=== PATIENT | female | born 1990 | race Caucasian/White ===

== ENCOUNTER 2016-12-22 05:35 | Inpatient (IN) | payer BC ==
[2016-12-22] MEDS ORDERED: Sodium Chloride 0.9% 10 ML Syringe FLUSH PRN (06:14)
[2016-12-22] MEDS ORDERED: Ondansetron 4 MG/2 ML SDV IVPUSH PRN (06:14)
[2016-12-22] MEDS ORDERED: Nalbuphine 20 MG/1 ML Amp IVPUSH PRN (06:14)
[2016-12-22] MEDS ORDERED: Oxytocin/Lactated Ringers 10 UNIT/1,000 ML BAG IV SCH (06:15)
[2016-12-22] MEDS ORDERED: Lactated Ringers 1,000 ML IV SCH (06:15)
[2016-12-22] MEDS ORDERED: Lidocaine 1% 50 ML MDV ONE (11:16)
[2016-12-22] MEDS ORDERED: Lanolin 100% Cream 7 GM Tube TOP PRN (16:16)
[2016-12-22] MEDS ORDERED: Docusate Sodium 100 MG Cap PO PRN (16:16)
[2016-12-22] MEDS ORDERED: Benzocaine/Menthol 20%-0.5% Spray 56 GM Canister TOP PRN (16:16)
[2016-12-22] MEDS ORDERED: Ibuprofen 600 MG Tab PO PRN (16:16)
[2016-12-22] MEDS ORDERED: Witch Hazel Medicated Pads 100/Jar TOP PRN (16:16)
--- NOTE | 2016-12-23 09:44 | PCM.LDHP ---
L&D History of Present Illness - General Date of Service: 12/22/16 Admit Problem/Dx: Admission Diagnosis/Problem Admission Diagnosis/Problem Source of Information: Patient History Limitations: Reports: No Limitations - History of Present Illness Introduction:: 26 year old female at 39w3 days. Increasingly regular contractions that started yesterday. On presentation is 4 cm and shortly after has SROM with clear fluid. 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 , Other (See Below) Other OB/BYN History: SAB x3 - Past Surgical History HEENT Surgical History: Reports: Oral Surgery, Other (See Below) Other HEENT Surgeries/Procedures: [place] teeth extraction Social & Family History - Tobacco Use Smoking Status *Q: Former Smoker Used Tobacco, but Quit: Yes Month Tobacco Last Used: 7 yrs ago - Caffeine Use Caffeine Use: Reports: Coffee - Recreational Drug Use Recreational Drug Use: No H&P Review of Systems - Review of Systems: Review Of Systems: See Below General: Reports: No Symptoms HEENT: Reports: No Symptoms Pulmonary: Reports: No Symptoms Cardiovascular: Reports: No Symptoms Gastrointestinal: Reports: No Symptoms Genitourinary: Reports: No Symptoms Musculoskeletal: Reports: No Symptoms Skin: Reports: No Symptoms Psychiatric: Reports: No Symptoms Neurological: Reports: No Symptoms Hematologic/Lymphatic: Reports: No Symptoms Immunologic: Reports: No Symptoms L&D Exam - Exam Exam: See Below - Vital Signs Vital Signs: Last Vital Signs Temp 36.6 C 12/22/16 22:27 Pulse 71 12/23/16 04:01 Resp 16 12/23/16 04:01 BP 108/86 12/23/16 04:01 Pulse Ox 96 12/23/16 04:01 Weight: 74.389 kg - OB Specific Contraction Intensity: Moderate Movement: Active Heart Tones per Min: 140 Heart Rate (FHR) Variability: Moderate (6-25 bmp) Presentation: Vertex - Lim Score Lim Score Cervix Position: Midposition Lim Score Consistency: Soft Lim Score Effacement: 51-70% Lim Score Dilation: 3-4 cm Lim Score 's Station: -2 Lim Score Total: 8 - Exam General: Alert, Oriented HEENT: PERRLA, Conjunctiva Clear, EACs Clear, EOMI, Hearing Intact, Mucosa Moist & [place], Nares Patent, Normal Nasal Septum, Posterior Pharynx Clear, TMs Clear Neck: Supple, Trachea Midline Lungs: Clear to Auscultation, Normal Respiratory Effort Cardiovascular: Regular Rate, Regular Rhythm GI/Abdominal Exam: Normal Bowel Sounds, Soft, Non-Tender, No Organomegaly, No Distention, No Abnormal Bruit, No Mass, Pelvis Stable Rectal Exam: Normal Exam, Normal Rectal Tone Genitourinary: Normal external exam, Normal bimanual exam, Normal speculum exam Back Exam: Normal Inspection, Full Range of Motion Extremities: Normal Inspection, Normal Range of Motion, Non-Tender, No Pedal Edema, Normal Capillary Refill Skin: Warm, Dry, Intact Neurological: Cranial Nerves Intact, Reflexes Equal Bilateral Psychiatric: Alert, Normal Affect, Normal Mood - Patient Data Result Diagrams: 12/22/16 07:00 Problem List Initiated/Reviewed/Updated: Yes Orders Last 24hrs: Active Orders 24 hr Category Date Time Status Activity as Tolerated [RC] .PRN Care 12/22/16 16:16 Active Vital Signs [RC] 04,12,20 Care 12/22/16 16:16 Active Benzocaine/Menthol [Dermoplast Pain Relief [place]] Med 12/22/16 16:16 Active See Dose Instructions TOP ASDIRECTED PRN Docusate Sodium [Colace] Med 12/22/16 16:16 Active 100 mg PO BID PRN Ibuprofen [Motrin] Med 12/22/16 16:16 Active 600 mg PO Q6H PRN Lanolin [Lansinoh HPA] Med 12/22/16 16:16 Active See Dose Instructions TOP ASDIRECTED PRN Witch Zully [Tucks] Med 12/22/16 16:16 Active 1 pad TOP ASDIRECTED PRN Assess Lochia [WOMSER] Per Unit Routine Ot 12/22/16 16:16 Ordered Assess Uterine Involution [WOMSER] Per Unit Routine Oth 12/22/16 16:16 Ordered Breast Pump [WOMSER] Per Unit Routine Oth 12/22/16 16:16 Ordered Heat Therapy [OM.PC] PRN Oth 12/22/16 16:16 Ordered Heat Therapy [OM.PC] PRN Oth 12/23/16 16:16 Ordered Medication Administration Instruction [OM.PC] Routine Ot 12/22/16 16:16 Ordered Perineal Care [OM.PC] Per Unit Routine Ot 12/22/16 16:16 Ordered Sitz Bath [OM.PC] Per Unit Routine Ot 12/22/16 16:16 Ordered Medication Orders Benzocaine/Menthol (Dermoplast Pain Relief [place]) 0 gm TOP ASDIRECTED PRN PRN Reason: Perineal Comfort Measure Docusate Sodium (Colace) 100 mg PO BID PRN PRN Reason: Constipation Emollient Ointment (Lansinoh Hpa) 0 gm TOP ASDIRECTED PRN PRN Reason: Sore Nipples Ibuprofen (Motrin) 600 mg PO Q6H PRN PRN Reason: Mild pain or fever Witch Zully (Tucks) 1 pad TOP ASDIRECTED PRN PRN Reason: Hemorrhoid pain Assessment/Plan Comment:: 26 year old female in labor. Extensive plan reviewed. Patient will eventually agree to saline lock. Anticipate .
--- NOTE | 2016-12-23 09:52 | PCM.DCSUM1 ---
Discharge Summary - Hospital Course Brief History: Admitted in labor and had uncomplicated course. - Discharge Data Discharge Date: 12/23/16 Discharge Disposition: Home, Self-Care 01 Condition: Good - Patient Instructions Diet: Usual Diet as Tolerated Activity: No Strenuous Activities Driving: May Drive Today Showering/Bathing: May Shower Wound/Incision Care: Keep Operative Site/Wound Site Clean and Dry Notify Provider of: Fever, Increased Pain, Swelling and Redness, Drainage, Nausea and/or Vomiting - Discharge Plan Referrals: Yesy Stephenson MD [Primary Care Provider] - (6 weeks) - Discharge Summary/Plan Comment DC Time >30 min.: No - General Info Date of Service: 12/23/16 Functional Status: Reports: Pain Controlled - Review of Systems General: Reports: No Symptoms HEENT: Reports: No Symptoms Pulmonary: Reports: No Symptoms Cardiovascular: Reports: No Symptoms Gastrointestinal: Reports: No Symptoms Genitourinary: Reports: No Symptoms Musculoskeletal: Reports: No Symptoms Skin: Reports: No Symptoms Neurological: Reports: No Symptoms Psychiatric: Reports: No Symptoms - Patient Data Vitals - Most Recent: Last Vital Signs Temp 36.6 C 12/22/16 22:27 Pulse 71 12/23/16 04:01 Resp 16 12/23/16 04:01 BP 108/86 12/23/16 04:01 Pulse Ox 96 12/23/16 04:01 Weight - Most Recent: 74.389 kg Med Orders - Current: Current Medications Benzocaine/Menthol (Dermoplast Pain Relief [place]) 0 gm TOP ASDIRECTED PRN PRN Reason: Perineal Comfort Measure Docusate Sodium (Colace) 100 mg PO BID PRN PRN Reason: Constipation Emollient Ointment (Lansinoh Hpa) 0 gm TOP ASDIRECTED PRN PRN Reason: Sore Nipples Ibuprofen (Motrin) 600 mg PO Q6H PRN PRN Reason: Mild pain or fever Witch Zully (Tucks) 1 pad TOP ASDIRECTED PRN PRN Reason: Hemorrhoid pain Discontinued Medications Lactated Ringer's (Ringers, Lactated) 1,000 mls @ 100 mls/hr IV ASDIRECTED BRAYAN Oxytocin/Lactated Ringer's (Pitocin In Lr 10 Units/1,000 Ml) 10 unit in 1,000 mls @ 500 mls/hr IV .CONTINUOUS BRAYAN Lidocaine HCl (Xylocaine 1%) Confirm Administered Dose 50 ml .ROUTE .STK-MED ONE Stop: 12/22/16 11:17 Last Admin: 12/22/16 17:37 Dose: Not Given Nalbuphine HCl (Nubain) 10 mg IVPUSH Q2H PRN PRN Reason: Pain (moderate 4-6) Ondansetron HCl (Zofran) 4 mg IVPUSH Q4H PRN PRN Reason: Nausea/Vomiting Sodium Chloride (Saline Flush) 10 ml FLUSH ASDIRECTED PRN PRN Reason: Keep Vein Open - Exam General: Reports: Alert, Oriented HEENT: Reports: Pupils Equal, Pupils Reactive, EOMI, Mucous Membr. Moist/[place] Neck: Reports: Supple Lungs: Reports: Clear to Auscultation, Normal Respiratory Effort Cardiovascular: Reports: Regular Rate, Regular Rhythm GI/Abdominal Exam: Normal Bowel Sounds, Soft, Non-Tender, No Organomegaly, No Distention, No Abnormal Bruit, No Mass, Pelvis Stable (Female) Exam: Normal Bimanual Exam Back Exam: Reports: Normal Inspection, Full Range of Motion Extremities: Normal Inspection, Normal Range of Motion, Non-Tender, No Pedal Edema, Normal Capillary Refill Skin: Reports: Warm, Dry, Intact Wound/Incisions: Reports: Healing Well Neurological: Reports: No New Focal Deficit Psy/Mental Status: Reports: Alert, Normal Affect, Normal Mood *Q Meaningful Use (DIS) - VTE *Q VTE Criteria *Q: - Stroke *Q Stroke Criteria *Q: - AMI *Q AMI Criteria *Q:
[2016-12-23 16:40] VITALS: BP 113/49
== END 2016-12-23 15:00 | disposition home or self-care (01) | DRG 560 ==
LOC: JD.OBCHECK 05:35 → JD.OB 05:37 → JD.OBCHECK 06:14 → UNDOADMOB 06:14 → JD.OB 06:14 → OBSVTOIN 13:59 → JD.OB 13:59
PROVIDERS: ADMIT Obstetrics & Gynecology; ATTEND Obstetrics & Gynecology
PROC: 10E0XZZ Delivery of Products of Conception, External Approach (ICD-10-PCS; principal; 2016-12-22)
DX: O80 Encounter for full-term uncomplicated delivery (principal); Z3A.39 39 weeks gestation of pregnancy; Z37.0 Single live birth; Z87.891 Personal history of nicotine dependence; Z88.8 Allergy status to other drugs, medicaments and biological substances
CPT/HCPCS: 36415; 59409; 85025; A9270-GY

== ENCOUNTER 2019-05-04 09:42 | Inpatient (IN) | payer BC ==
[2019-05-04] MEDS ORDERED: Oxytocin 10 Units/1 ML SDV IM ONE (10:04)
[2019-05-04] MEDS ORDERED: Sodium Chloride 0.9% 10 ML Syringe FLUSH PRN (10:04)
[2019-05-04] MEDS ORDERED: Lactated Ringers 1,000 ML IV SCH (10:15)
--- NOTE | 2019-05-04 10:31 | PCM.LDHP ---
L&D History of Present Illness - General Date of Service: 05/04/19 Admit Problem/Dx: Patient Status Order with Admit Dx/Problem 05/04/19 10:04 Patient Status [ADT] Routine Admission Diagnosis/Problem Admission Diagnosis/Problem Active labor Source of Information: Patient History Limitations: Reports: No Limitations - History of Present Illness Introduction:: 28 year old at 41w5d presents in active labor at 8 cm. Intact membranes. Contractions started at 3am. PNC with myself without complications. Rh negative. rH neg. 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 , Other (See Below) Other OB/BYN History: SAB x3 - Past Surgical History HEENT Surgical History: Reports: Oral Surgery, Other (See Below) Other HEENT Surgeries/Procedures: [place] teeth extraction Social & Family History - Caffeine Use Caffeine Use: Reports: Coffee H&P Review of Systems - Review of Systems: Review Of Systems: See Below General: Reports: No Symptoms HEENT: Reports: No Symptoms Pulmonary: Reports: No Symptoms Cardiovascular: Reports: No Symptoms Gastrointestinal: Reports: No Symptoms Genitourinary: Reports: No Symptoms Musculoskeletal: Reports: No Symptoms Skin: Reports: No Symptoms Psychiatric: Reports: No Symptoms Neurological: Reports: No Symptoms Hematologic/Lymphatic: Reports: No Symptoms Immunologic: Reports: No Symptoms L&D Exam - Exam Exam: See Below - Vital Signs Weight: 75.115 kg - OB Specific Contraction Intensity: Moderate to Strong Movement: Active Heart Tones: Present Heart Rate (FHR) Variability: Moderate (6-25 bmp) Presentation: Vertex - Lim Score Lim Score Cervix Position: Anterior Lim Score Effacement: >80% Lim Score Dilation: > 5 cm - Exam General: Alert, Oriented HEENT: PERRLA, Conjunctiva Clear, EACs Clear, EOMI, Hearing Intact, Mucosa Moist & [place], Nares Patent, Normal Nasal Septum, Posterior Pharynx Clear, TMs Clear Neck: Supple, Trachea Midline Lungs: Clear to Auscultation, Normal Respiratory Effort Cardiovascular: Regular Rate, Regular Rhythm GI/Abdominal Exam: Normal Bowel Sounds, Soft, Non-Tender, No Organomegaly, No Distention, No Abnormal Bruit, No Mass, Pelvis Stable Rectal Exam: Normal Exam, Normal Rectal Tone Extremities: Normal Inspection, Normal Range of Motion, Non-Tender, No Pedal Edema, Normal Capillary Refill Skin: Warm, Dry, Intact Neurological: Cranial Nerves Intact, Reflexes Equal Bilateral Psychiatric: Alert, Normal Affect, Normal Mood Problem List Initiated/Reviewed/Updated: Yes Orders Last 24hrs: Active Orders 24 hr Category Date Time Status Patient Status [ADT] Routine ADT 05/04/19 10:04 Active Activity as Tolerated [RC] PFP Care 05/04/19 10:04 Active Communication Order [RC] ASDIRECTED Care 05/04/19 10:04 Active Heart Tones [RC] ASDIRECTED Care 05/04/19 10:04 Active Non Stress Test [RC] PER UNIT ROUTINE Care 05/04/19 10:04 Active Notify Provider [RC] PFP Care 05/04/19 10:04 Active Notify Provider [RC] PRN Care 05/04/19 10:04 Active Peripheral IV Care [RC] . DIRECTED Care 05/04/19 10:04 Active Vital Signs [RC] PER UNIT ROUTINE Care 05/04/19 10:04 Active Regular Diet [DIET] Diet 05/04/19 Breakfast Active BLOOD BANK HOLD SPECIMEN [BBK] Stat Lab 05/04/19 10:04 Ordered CBC WITH AUTO DIFF [HEME] Stat Lab 05/04/19 10:04 Ordered RAPID PLASMA REAGIN,RPR [CHEM] Stat Lab 05/04/19 10:04 Ordered Lactated Ringers [Ringers, Lactated] 1,000 ml Med 05/04/19 10:15 Ordered IV ASDIRECTED Lidocaine 1% [Xylocaine 1%] Med 05/04/19 10:04 Once 20 ml INJECT ONETIME ONE Oxytocin [Pitocin] Med 05/04/19 10:04 Once 10 unit IM ONETIME ONE Sodium Chloride 0.9% [Saline Flush] Med 05/04/19 10:04 Ordered 10 ml FLUSH ASDIRECTED PRN Electronic Heart Tones Ext w TOCO [WOMSER] Oth 05/04/19 10:04 Ordered Routine Electronic Heart Tones Internal [WOMSER] Per Unit Oth 05/04/19 10:04 Ordered Routine Peripheral IV Insertion Adult [OM.PC] Routine Oth 05/04/19 10:04 Ordered Resuscitation Status Routine Resus Stat 05/04/19 10:04 Ordered Medication Orders Lactated Ringer's (Ringers, Lactated) 1,000 mls @ 100 mls/hr IV ASDIRECTED BRAYAN Lidocaine HCl (Xylocaine 1%) 20 ml INJECT ONETIME ONE Stop: 05/04/19 10:05 Oxytocin (Pitocin) 10 unit IM ONETIME ONE Stop: 05/04/19 10:05 Sodium Chloride (Saline Flush) 10 ml FLUSH ASDIRECTED PRN PRN Reason: Keep Vein Open Assessment/Plan Comment:: Active labor. Anticipate .
--- NOTE | 2019-05-04 12:19 | PCM.SN ---
- Free Text/Narrative Note: Stage I - Patient presented in active labor at 8 cm. Progressed rapidly to complete. AROM. Stage II - of viable female. Weight pending. 8/9 APGARS at 1150. Head delivered in controlled manner over intact perineum. Body and shoulders without difficulty. Stage III - Cord clamped and cut. Cord blood collected. No laceration. EBL 150.
[2019-05-04] MEDS ORDERED: Docusate Sodium 100 MG Cap PO PRN (12:52)
[2019-05-04] MEDS ORDERED: Benzocaine/Menthol 20%-0.5% Spray 56 GM Canister TOP PRN (12:52)
[2019-05-04] MEDS ORDERED: Witch Hazel Medicated Pads 40/Jar TOP PRN (12:52)
[2019-05-04] MEDS ORDERED: Lidocaine 1% 50 ML MDV INJECT ONE (18:00)
--- NOTE | 2019-05-05 06:45 | PCM.DCSUM1 ---
Discharge Summary - Hospital Course Diagnosis: Stroke: No - Discharge Data Discharge Date: 05/05/19 Discharge Disposition: Home, Self-Care 01 Condition: Good - Referral to Home Health Primary Care Physician: Yesy Stephenson MD - Patient Summary/Data Hospital Course: Unremarkable labor deliver and course - Patient Instructions Diet: Usual Diet as Tolerated Activity: No Strenuous Activities Driving: May Drive Today Showering/Bathing: May Shower Wound/Incision Care: Keep Operative Site/Wound Site Clean and Dry Notify Provider of: Fever - Discharge Plan *PRESCRIPTION DRUG MONITORING PROGRAM REVIEWED*: No *COPY OF PRESCRIPTION DRUG MONITORING REPORT IN PATIENT GAIL: No Home Medications: Home Meds Pnv No.95/Ferrous Fum/Folic AC [ Tablet] 1 each PO DAILY 04/12/19 [ History] Referrals: Yesy Stephenson MD [Primary Care Provider] - - Discharge Summary/Plan Comment DC Time >30 min.: No - General Info Date of Service: 05/05/19 Functional Status: Reports: Pain Controlled - Review of Systems General: Reports: No Symptoms HEENT: Reports: No Symptoms Pulmonary: Reports: No Symptoms Cardiovascular: Reports: No Symptoms Gastrointestinal: Reports: No Symptoms Genitourinary: Reports: No Symptoms Musculoskeletal: Reports: No Symptoms Skin: Reports: No Symptoms Neurological: Reports: No Symptoms Psychiatric: Reports: No Symptoms - Patient Data Vitals - Most Recent: Last Vital Signs Temp 36.8 C 05/05/19 05:23 Pulse 71 05/05/19 05:23 Resp 20 05/05/19 05:23 BP 98/60 05/05/19 05:23 Pulse Ox 96 05/05/19 05:23 Weight - Most Recent: 75.115 kg I&O - Last 24 hours: Intake & Output 05/04/19 05/04/19 05/05/19 14:59 22:59 06:59 Intake Total 240 Balance 240 Lab Results - Last 24 hrs: Laboratory Results - last 24 hr 05/04/19 05/04/19 05/05/19 Range/Units 10:25 10:25 05:55 WBC 15.66 H 15.59 H (3.98-10.04) K/mm3 RBC 4.48 4.05 (3.98-5.22) M/mm3 Hgb 12.1 11.2 (11.2-15.7) gm/dl Hct 36.7 33.4 L (34.1-44.9) % MCV 81.9 82.5 (79.4-94.8) fl MCH 27.0 27.7 (25.6-32.2) pg MCHC 33.0 33.5 (32.2-35.5) g/dl RDW Std Deviation 38.8 38.8 (36.4-46.3) fL Plt Count 225 238 (182-369) K/mm3 MPV 10.9 11.0 (9.4-12.3) fl Neut % (Auto) 85.9 H (34.0-71.1) % Lymph % (Auto) 8.9 L (19.3-51.7) % [place] % (Auto) 4.7 (4.7-12.5) % Eos % (Auto) 0.1 L (0.7-5.8) Baso % (Auto) 0.1 (0.1-1.2) % Neut # (Auto) 13.45 H (1.56-6.13) K/mm3 Lymph # (Auto) 1.40 (1.18-3.74) K/mm3 [place] # (Auto) 0.74 H (0.24-0.36) K/mm3 Eos # (Auto) 0.01 L (0.04-0.36) K/mm3 Baso # (Auto) 0.01 (0.01-0.08) K/mm3 RPR Non-reactive (NONREACTIVE) Med Orders - Current: Current Medications Benzocaine/Menthol (Dermoplast Pain Relief [place]) 0 gm TOP ASDIRECTED PRN PRN Reason: Perineal Comfort Measure Docusate Sodium (Colace) 100 mg PO BID PRN PRN Reason: Constipation Witch Zully (Tucks) 1 pad TOP ASDIRECTED PRN PRN Reason: Pain Last Admin: 05/04/19 13:51 Dose: 1 container Discontinued Medications Lactated Ringer's (Ringers, Lactated) 1,000 mls @ 100 mls/hr IV ASDIRECTED BRAYAN Lidocaine HCl (Xylocaine 1%) 20 ml INJECT ONETIME ONE Stop: 05/04/19 18:01 Oxytocin (Pitocin) 10 unit IM ONETIME ONE Stop: 05/04/19 10:05 Last Admin: 05/04/19 19:55 Dose: Not Given Sodium Chloride (Saline Flush) 10 ml FLUSH ASDIRECTED PRN PRN Reason: Keep Vein Open - Exam General: Reports: Alert, Oriented HEENT: Reports: Pupils Equal, Pupils Reactive, EOMI, Mucous Membr. Moist/[place] Neck: Reports: Supple Lungs: Reports: Clear to Auscultation, Normal Respiratory Effort Cardiovascular: Reports: Regular Rate, Regular Rhythm GI/Abdominal Exam: Normal Bowel Sounds, Soft, Non-Tender, No Organomegaly, No Distention, No Abnormal Bruit, No Mass, Pelvis Stable Rectal (Female) Exam: Normal Exam, Normal Rectal Tone Back Exam: Reports: Normal Inspection, Full Range of Motion Extremities: Normal Inspection, Normal Range of Motion, Non-Tender, No Pedal Edema, Normal Capillary Refill Skin: Reports: Warm, Dry, Intact Wound/Incisions: Reports: Healing Well Neurological: Reports: No New Focal Deficit Psy/Mental Status: Reports: Alert, Normal Affect, Normal Mood
[2019-05-05 10:01] VITALS: BP 100/64
[2019-05-05 10:02] VITALS: PULSE 71
== END 2019-05-05 12:29 | disposition home or self-care (01) | DRG 560 ==
LOC: JD.OBCHECK 09:42 → JD.OB 09:45 → JD.OBCHECK 10:03 → JD.OB 10:04 → OBSVTOIN 11:50 → JD.OB 11:57
PROVIDERS: ADMIT Obstetrics & Gynecology; ATTEND Obstetrics & Gynecology
PROC: 10E0XZZ Delivery of Products of Conception, External Approach (ICD-10-PCS; principal; 2019-05-04)
PROC: 10907ZC Drainage of Amniotic Fluid, Therapeutic from Products of Conception, Via Natural or Artificial Opening (ICD-10-PCS; 2019-05-04)
DX: O48.0 Post-term pregnancy (principal); Z3A.41 41 weeks gestation of pregnancy; Z37.0 Single live birth; Z88.8 Allergy status to other drugs, medicaments and biological substances; Z87.891 Personal history of nicotine dependence; Z87.440 Personal history of urinary (tract) infections
CPT/HCPCS: 36415; 59025; 59409; 85025; 85027; 86592

== ENCOUNTER 2021-04-24 20:26 | Day surgery (SDC) | payer BC ==
[2021-04-24] MEDS ORDERED: Sodium Chloride 0.9% 1,000 ML IV STA (20:47)
[2021-04-24] MEDS ORDERED: Sodium Chloride 0.9% 10 ML Syringe FLUSH PRN (20:47)
[2021-04-24] MEDS ORDERED: Misoprostol 200 MCG Tab PO ONE (22:12)
[2021-04-24] MEDS ORDERED: Lactated Ringers 1,000 ML IV ONE (23:21)
[2021-04-24] MEDS ORDERED: Ondansetron 4 MG/2 ML SDV ONE (23:50)
[2021-04-24] MEDS ORDERED: Lidocaine 1% 4 ML ONE (23:50)
[2021-04-24] MEDS ORDERED: Propofol 200 MG/20 ML SDV ONE (23:50)
[2021-04-24] MEDS ORDERED: Midazolam 1 MG/ML 2 ML SDV ONE (23:51)
[2021-04-24] MEDS ORDERED: fentaNYL 250 MCG/5 ML SDV ONE (23:51)
[2021-04-25] MEDS ORDERED: Lactated Ringers 1,000 ML ONE ×2 (00:18→00:50)
[2021-04-25] MEDS ORDERED: Methylergonovine 0.2 MG/1 ML Amp ONE (00:34)
[2021-04-25] MEDS ORDERED: fentaNYL 100 MCG/2 ML SDV IVPUSH PRN (00:38)
[2021-04-25] MEDS ORDERED: HYDROmorphone 0.5 MG/0.5 ML Syringe IVPUSH PRN (00:38)
[2021-04-25] MEDS ORDERED: Ondansetron 4 MG/2 ML SDV IVPUSH PRN ×2 (00:38→00:46)
[2021-04-25] MEDS ORDERED: Ibuprofen 600 MG Tab PO PRN (00:46)
[2021-04-25 10:23] VITALS: BP 109/57; PULSE 99
== END 2021-04-25 09:28 | disposition home or self-care (01) ==
LOC: JD.ED 20:26 → JD.SDS 23:43 → JD.OB 04-25 02:28 → JD.SDS 04-25 09:28
PROVIDERS: ATTEND Obstetrics & Gynecology
DX: O03.4 Incomplete spontaneous abortion without complication (principal); Z87.891 Personal history of nicotine dependence; Z98.890 Other specified postprocedural states; Z01.812 Encounter for preprocedural laboratory examination; Z20.822 Contact with and (suspected) exposure to COVID-19
CPT/HCPCS: 36415; 59812; 76801; 80053; 85014; 85018; 85025; 86850; 86900; 86901; 87635; 99285; A9270; J2210; J2250; J2704; J3010; J7030; J7120; 01965; J2405; U0002

== ENCOUNTER 2022-09-16 09:23 | Inpatient (IN) | payer BC ==
[2022-09-16] MEDS ORDERED: Nalbuphine 10 MG/0.5 ML Syringe IVPUSH PRN (10:07)
[2022-09-16] MEDS ORDERED: Ondansetron 4 MG/2 ML SDV IVPUSH PRN (10:07)
[2022-09-16] MEDS ORDERED: Lidocaine 1% 50 ML MDV INJECT ONE (10:07)
[2022-09-16] MEDS ORDERED: Lactated Ringers 1,000 ML IV SCH (10:15)
[2022-09-16] MEDS ORDERED: Oxytocin/Lactated Ringers 10 UNIT/1,000 ML BAG IV SCH (10:15)
[2022-09-16 10:33] LABS: BASOPHILS ABSOLUTE AUTO 0.02 K/mm3 (0.01-0.08); BASOPHILS PERCENT AUTO 0.1 % (0.1-1.2); EOSINOPHILS ABSOLUTE AUTO 0.01 K/mm3 (0.04-0.36); EOSINOPHILS PERCENT AUTO 0.1 (0.7-5.8); HEMATOCRIT 35.5 % (34.1-44.9); HEMOGLOBIN 11.9 gm/dl (11.2-15.7); IMMATURE GRAN ABSOLUTE AUTO 0.04 K/mm3 (0.00-0.10); IMMATURE GRAN PERCENT AUTO 0.3 % (<=1.0); LYMPHOCYTES ABSOLUTE AUTO 1.68 K/mm3 (1.18-3.74); MEAN CORPUSCULAR HGB CONC 33.5 g/dl (32.2-35.5); MEAN CORPUSCULAR VOLUME 80.7 fl (79.4-94.8); MEAN PLATELET VOLUME 11.8 fl (9.4-12.3); MONOCYTES ABSOLUTE AUTO 0.81 K/mm3 (0.24-0.36); MONOCYTES PERCENT AUTO 5.8 % (4.7-12.5); NEUTROPHILS ABSOLUTE AUTO 11.48 K/mm3 (1.56-6.13); NEUTROPHILS PERCENT AUTO 81.7 % (34.0-71.1); PLATELET COUNT,PLT 206 K/mm3 (182-369); WHITE BLOOD CELL COUNT,WBC 14.04 K/mm3 (3.98-10.04)
[2022-09-16] MEDS ORDERED: Benzocaine/Menthol 20%-0.5% Spray 78 GM Cannister TOP PRN (13:31)
[2022-09-16] MEDS ORDERED: Ibuprofen 600 MG Tab PO PRN (13:31)
[2022-09-16] MEDS ORDERED: Witch Hazel Medicated Pads 40/Jar TOP PRN (13:31)
[2022-09-17 09:48] VITALS: BP 112/51; PULSE 76
== END 2022-09-17 14:10 | disposition home or self-care (01) | DRG 560 ==
LOC: JD.OBCHECK 09:23 → JD.OB 10:07 → OBSVTOIN 12:09 → JD.OB 12:09
PROVIDERS: ADMIT Obstetrics & Gynecology; ATTEND Obstetrics & Gynecology
PROC: 10907ZC Drainage of Amniotic Fluid, Therapeutic from Products of Conception, Via Natural or Artificial Opening (ICD-10-PCS; principal; 2022-09-16)
PROC: 10E0XZZ Delivery of Products of Conception, External Approach (ICD-10-PCS; principal; 2022-09-16)
DX: O80 Encounter for full-term uncomplicated delivery (principal); Z37.0 Single live birth; Z3A.40 40 weeks gestation of pregnancy; Z88.8 Allergy status to other drugs, medicaments and biological substances
CPT/HCPCS: 36415; 59025; 59409; 85025; 86592; 86850; 86900; 86901